=== PATIENT | male | born 1990 | race African-American/Black ===

== ENCOUNTER 2017-05-20 12:05 | Emergency (ER) | payer OTHER ==
[~2017-05-20] VITALS: Ht 170.2 cm; Wt 78.0 kg
[~2017-05-20 12:05] MED LIST: PROZ20CA11 PO
[2017-05-20 12:06] VITALS: BP 117/74; PULSE 76; RESP 20; TEMP 98.2; O2SAT 99
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
[2017-05-20] MEDS ORDERED: ROBA500T PO (12:34)
== END 2017-05-20 12:40 | disposition home or self-care (01) ==
LOC: NEPK 12:05
DX: S16.1XXA Strain of muscle, fascia and tendon at neck level, initial encounter (principal); V49.40XA Driver injured in collision with unspecified motor vehicles in traffic accident, initial encounter; Y92.488 Other paved roadways as the place of occurrence of the external cause
CPT/HCPCS: 99283